=== PATIENT | male | born 1995 | race African-American/Black ===

== ENCOUNTER 2020-08-13 21:54 | Emergency (ER) | payer MEDICAID ==
[~2020-08-13] VITALS: Ht 175.3 cm; Wt 97.5 kg
[2020-08-13 21:58] VITALS: BP 156/90
[2020-08-13] MEDS ORDERED: KETOROLAC 60 MG/2 ML VIAL IM ONE (23:35)
[2020-08-13] MEDS ORDERED: IBUP-2213 PO (23:42)
[2020-08-13] MEDS ORDERED: CIPR500T4 PO (23:42)
[2020-08-13] MEDS ORDERED: ONDA8TAB87 PO (23:42)
[2020-08-13 23:50] VITALS: BP 156/90
== END 2020-08-13 23:50 | disposition home or self-care (01) ==
LOC: MED 21:54
DX: R10.32 Left lower quadrant pain (principal); R19.7 Diarrhea, unspecified; R30.0 Dysuria; Z98.890 Other specified postprocedural states
CPT/HCPCS: 81002; 96372; 99283; J1885

== ENCOUNTER 2021-09-13 14:24 | Emergency (ER) | payer MEDICAID ==
[~2021-09-13] VITALS: Ht 180.3 cm; Wt 95.3 kg
[~2021-09-13 14:24] MED LIST: CIPR500T4 PO; IBUP-2213 PO; ONDA8TAB87 PO
[2021-09-13 14:36] VITALS: BP 159/84
[2021-09-13] MEDS ORDERED: KETOROLAC 15 MG/ML VIAL IM ONE (15:10)
--- NOTE | 2021-09-13 15:21 | NUR ---
PT AMBULATED TO ER BED 2
--- NOTE | 2021-09-13 15:30 | NUR ---
26 y/o male, c/o 1 episode of bloody emesis 2 days ago, has not had anymore episodes. pt states he has also been having loose stools for 2 months. pain worsens with cough and deep inspiration, squeezing sensation 8/10. denies fevers, chills, dysuria, hematuria, cp, or sob. a&ox4, ambulates with steady gait. lung sounds clear bl, heart sounds even and regular, skin pink/warm/dry. bed down, rails x2, call light within reach. pmh: eoth dependency, hep c, congenital kidney disease, htn, hernia repair nka
--- NOTE | 2021-09-13 15:35 | NUR ---
pt taken to ct via wheelchair at this time
[2021-09-13] MEDS ORDERED: KETOROLAC 15 MG/ML VIAL IVP ONE (15:50)
[2021-09-13 15:51] LABS: BASOPHILS % (AUTO) 0.2 % (0.0-2.0); EOSINOPHILS # (AUTO) 0.1 K/uL (0-0.4); EOSINOPHILS % (AUTO) 1.5 % (0.0-4.0); LYMPHOCYTES # (AUTO) 2.5 K/uL (2.0-11.5); LYMPHOCYTES % (AUTO) 36.8 % (20.5-51.1); MEAN CORPUSCULAR HEMOGLOBIN 30 pg (27-31); MEAN CORPUSCULAR HGB CONC 33 g/dL (33-37); MEAN CORPUSCULAR VOLUME 89.5 fL (80-94); MONOCYTES # (AUTO) 0.7 K/uL (0.8-1.0); MONOCYTES % (AUTO) 10.7 % (1.7-9.3); NEUTROPHILS # (AUTO) 3.5 K/uL (1.8-7.7); NEUTROPHILS % (AUTO) 50.8 % (42.2-75.2); PLATELET COUNT (AUTO) 228 K/uL (140-450); RED CELL DISTRIBUTION WIDTH 14.2 % (11.6-13.7); WHITE BLOOD COUNT (AUTO) 6.9 K/uL (4.8-10.8)
--- NOTE | 2021-09-13 16:10 | NUR ---
pt given ice water for po challenge at this time
[2021-09-13 16:19] LABS: ALBUMIN 3.9 g/dL (3.4-5.0); ANION GAP 15.5 (8-16); CARBON DIOXIDE 25.2 mmol/L (21-32); MAGNESIUM 2.4 mg/dL (1.8-2.4); PHOSPHORUS 3.9 mg/dL (2.5-4.9); POTASSIUM 3.7 mmol/L (3.5-5.1); TOTAL BILIRUBIN 0.3 mg/dL (0.0-1.0)
--- NOTE | 2021-09-13 17:00 | NUR ---
no emesis episodes, nausea or vomiting. po challenege tolerated at this time
[2021-09-13 17:36] VITALS: BP 142/97
--- NOTE | 2021-09-13 17:37 | NUR ---
Patient discharged with v/s stable. Written and verbal after care instructions given and explained. Patient verbalized understanding. Ambulatory with steady gait. All questions addressed prior to discharge. Advised to follow up with PMD. copy of ct and labs given
== END 2021-09-13 17:37 | disposition home or self-care (01) ==
LOC: MED 14:24
DX: R10.84 Generalized abdominal pain (principal); F10.20 Alcohol dependence, uncomplicated; R11.10 Vomiting, unspecified; I10 Essential (primary) hypertension; F12.90 Cannabis use, unspecified, uncomplicated; Z86.19 Personal history of other infectious and parasitic diseases; Z98.890 Other specified postprocedural states; Z79.899 Other long term (current) drug therapy; Y90.6 Blood alcohol level of 120-199 mg/100 ml
CPT/HCPCS: 36415; 74176; 80053; 81002; 83690; 83735; 84100; 85025; 96374; 99284; G0482; J1885

== ENCOUNTER 2021-10-08 00:50 | Emergency (ER) | payer MEDICAID ==
[~2021-10-08] VITALS: Ht 175.3 cm; Wt 96.6 kg
[2021-10-08 00:52] VITALS: BP 159/105
--- NOTE | 2021-10-08 00:55 | NUR ---
to lobby a/w bed , via w/s
--- NOTE | 2021-10-08 01:11 | NUR ---
PT TAKEN TO XRAY
--- NOTE | 2021-10-08 03:32 | NUR ---
PATIENT TAKEN TO CHAIR A VIA W/C
--- NOTE | 2021-10-08 03:58 | NUR ---
Dr. Hamm examining patient.
[2021-10-08 04:15] VITALS: BP 136/95
--- NOTE | 2021-10-08 04:15 | NUR ---
Patient discharged with v/s stable. Written and verbal after care instructions given and explained. Patient verbalized understanding. Wheel Chair Assisted with to car. All questions addressed prior to discharge. Advised to follow up with PMD.
== END 2021-10-08 04:15 | disposition home or self-care (01) ==
LOC: MED 00:50
DX: S93.402A Sprain of unspecified ligament of left ankle, initial encounter (principal); I10 Essential (primary) hypertension; Z79.899 Other long term (current) drug therapy; Y04.0XXA Assault by unarmed brawl or fight, initial encounter; Y93.89 Activity, other specified; Y92.89 Other specified places as the place of occurrence of the external cause; Y99.8 Other external cause status
CPT/HCPCS: 73610; 99283

== ENCOUNTER 2022-10-14 13:57 | Emergency (ER) | payer MEDICAID ==
[~2022-10-14] VITALS: Ht 88.9 cm; Wt 89.4 kg
[2022-10-14 14:05] VITALS: BP 159/100; PULSE 106; RESP 20; TEMP 98.1; O2SAT 98
--- NOTE | 2022-10-14 14:16 | NUR ---
bibs for left side numbness x 2 days. hx htn. no facial droop. no slurred speech. -arm drift. aao x4. resp even and nonlabored. ambulatory with steady gait. denies chest pain, dizziness,n,v, fever, sob
--- NOTE | 2022-10-14 14:44 | NUR ---
taken to ct
[2022-10-14 15:12] LABS: BASOPHILS # (AUTO) 0.1 K/uL (0.00-0.22); BASOPHILS % (AUTO) 1.9 % (0.0-2.0); EOSINOPHILS # (AUTO) 0.2 K/uL (0-0.4); EOSINOPHILS % (AUTO) 2.7 % (0.0-4.0); HEMATOCRIT 48.9 % (36-52); HEMOGLOBIN 16.5 g/dL (12.0-18.0); LYMPHOCYTES # (AUTO) 2.4 K/uL (2.0-11.5); LYMPHOCYTES % (AUTO) 36.6 % (20.5-51.1); MEAN CORPUSCULAR HEMOGLOBIN 30 pg (27-31); MEAN CORPUSCULAR HGB CONC 34 g/dL (33-37); MEAN CORPUSCULAR VOLUME 89.7 fL (80-94); MONOCYTES # (AUTO) 0.8 K/uL (0.8-1.0); MONOCYTES % (AUTO) 11.5 % (1.7-9.3); NEUTROPHILS # (AUTO) 3.1 K/uL (1.8-7.7); NEUTROPHILS % (AUTO) 47.3 % (42.2-75.2); PLATELET COUNT (AUTO) 226 K/uL (140-450); RED BLOOD CELL COUNT(AUTO) 5.45 MIL/uL (4.20-6.10); RED CELL DISTRIBUTION WIDTH 13.7 % (11.6-13.7); WHITE BLOOD COUNT (AUTO) 6.6 K/uL (4.8-10.8)
[2022-10-14 15:25] LABS: PROTHROMBIN TIME 10.1 secs (10.8-13.4)
[2022-10-14 15:29] LABS: ALBUMIN 3.6 g/dL (3.4-5.0); ANION GAP 17.3 (8-16); CARBON DIOXIDE 23.5 mmol/L (21-32); POTASSIUM 3.8 mmol/L (3.5-5.1); TOTAL BILIRUBIN 0.3 mg/dL (0.0-1.0)
[2022-10-14] MEDS ORDERED: NIFE60TE5 PO (17:25)
[2022-10-14] MEDS ORDERED: ASPI81EC19 PO (17:25)
[2022-10-14 18:04] VITALS: BP 144/109; PULSE 89; RESP 18; TEMP 98.2; O2SAT 98
--- NOTE | 2022-10-14 18:06 | NUR ---
Patient discharged with v/s stable. Written and verbal after care instructions given and explained. Patient alert, oriented and verbalized understanding of instructions. Ambulatory with to home. All questions addressed prior to discharge. ID band removed. Patient advised to follow up with PMD. Rx of PROCARDIA given. Patient educated on indication of medication including possible reaction and side effects. Opportunity to ask questions provided and answered.
== END 2022-10-14 18:06 | disposition home or self-care (01) ==
LOC: MED 13:57
DX: I12.9 Hypertensive chronic kidney disease with stage 1 through stage 4 chronic kidney disease, or unspecified chronic kidney disease (principal); F10.129 Alcohol abuse with intoxication, unspecified; N18.9 Chronic kidney disease, unspecified; Z79.899 Other long term (current) drug therapy; Y90.9 Presence of alcohol in blood, level not specified
CPT/HCPCS: 36415; 70450; 71045; 80053; 83880; 84484; 85025; 85610; 85730; 93005; 99285; G0482; Q0092